=== PATIENT | male | born 1965 | race Caucasian/White ===

== ENCOUNTER 2019-06-20 07:53 | Outpatient (CLI) | payer OTHER ==
--- NOTE | 2019-06-20 10:08 | CT ---
CT ABDOMEN AND PELVIS WITH IV CONTRAST: Oral contrast was administered. Multiplanar reconstruction. INDICATION: Pancytopenia. Hypersplenism. Comparison made to CT of 05/21/08. FINDINGS: Lung bases clear. Liver unremarkable. There is splenomegaly, which has occurred since the prior exam. Spleen measures 25 cm craniocaudal di mension. Pancreas unremarkable. Stomach and duodenum unremarkable. Adrenal glands normal. Review of the kidneys shows no hydronephrosis. There are numerous nonobstructing calculi seen in the upper collecting structures of both kidneys. The largest on the right in the upper pole measures in t he 5 mm range. The largest on the left in the lower pole also measures in the 5 mm range. There are numerous small low density lesions seen in both kidneys, most of which are too small to chu quately characterize. There are 1.0 cm cystic lesions seen in both kidneys. No hydronephrosis. No ping id renal mass. Ureters are normal caliber. Urinary bladder is mildly distended. There is mild bladder wall thickening. Small bowel loops are normal caliber. Colon is unremarkable. Left colon is nondistended and not well evaluated. Aorta normal caliber. No adenopathy identified. No free fluid. IMPRESSION: 1. Splenomegaly. 2. Numerous small nonobstructing calculi in the upper collecting structures of both kidneys. 3. There are numerous small low density lesions in both kidneys measuring up to 1.0 cm. These are to o small to adequately characterize, but most likely represent numerous small renal cysts. POS: OFF
== END 2019-06-20 07:54 | disposition home or self-care (01) ==
LOC: SCSCT 07:53
PROVIDERS: ATTEND Internal Medicine Hematology & Oncology
DX: D61.818 Other pancytopenia (principal); D73.1 Hypersplenism; R16.2 Hepatomegaly with splenomegaly, not elsewhere classified; N20.0 Calculus of kidney; N28.9 Disorder of kidney and ureter, unspecified
CPT/HCPCS: 74177

== ENCOUNTER 2021-11-12 08:50 | Outpatient (CLI) | payer OTHER ==
[2021-11-12 18:26] LABS: SARS-CoV-2 PCR by NAA Not Detected (NotDetected)
== END 2021-11-12 08:51 | disposition home or self-care (01) ==
LOC: LABBT 08:50
PROVIDERS: ATTEND Internal Medicine Gastroenterology
DX: Z01.812 Encounter for preprocedural laboratory examination (principal); K21.9 Gastro-esophageal reflux disease without esophagitis; Z20.822 Contact with and (suspected) exposure to COVID-19
CPT/HCPCS: U0003; U0005

== ENCOUNTER 2021-11-17 05:38 | Day surgery (SDC) | payer OTHER ==
[2021-11-09 10:45] VITALS: BMI 35.3
[2021-11-17] MEDS ORDERED: Lidocaine 1% PF 5 ML VIAL ONE (08:28)
[2021-11-17] MEDS ORDERED: PROPOFOL 200 MG/20 ML VIAL ONE (08:28)
== END 2021-11-17 09:52 | disposition home or self-care (01) ==
LOC: SDC 05:38
PROVIDERS: ATTEND Internal Medicine Gastroenterology
PROC: 0DJ08ZZ Inspection of Upper Intestinal Tract, Via Natural or Artificial Opening Endoscopic (ICD-10-PCS; principal; 2021-11-17)
DX: K74.60 Unspecified cirrhosis of liver (principal); Z79.899 Other long term (current) drug therapy; Z88.6 Allergy status to analgesic agent; Z88.7 Allergy status to serum and vaccine; Z91.018 Allergy to other foods
CPT/HCPCS: J2704